=== PATIENT | male | born 1960 | race Caucasian/White ===

== ENCOUNTER 2024-01-18 16:41 | Emergency (ER) | payer OTHER, SELFPAY ==
[2024-01-18 16:42] VITALS: BP 105/79
[2024-01-18 18:12] VITALS: BP 125/78
--- NOTE | 2024-01-18 19:35 | ED.MUSCINJ ---
HPI-Injury
General
Chief Complaint: Musculo-Skeletal Complaint
Source: patient
Exam Limitations: none
Time Seen by Provider: 01/18/24 19:21
History of Present Illness-Injury
Is this injury a work related problem?: No
Is pt an associate of [facility]?: No
Initial Injury comments:
This is a 63 year old male that comes in with c/o right knee pain. States that on Monday he was playing with his children and he was squatting down. States that when he stood up something felt wrong in the right knee on. States that his hamstring
felt weak and numb for a couple seconds. States that when he goes up and down the steps he can't fulling bend the knee. Denies any fever, chills, chest pain, SOB, abd pain, nausea, vomiting, diarrhea, headache, dizziness, urinary burning.
Past History
Past History
ED Past Medical History: HTN, Psychiatric (Anxiety, ) and Other (Sigmoid diverticulosis)
ED Past Surgical History: Other (Colonoscopy with sigmoid polypectomy October 30, 2020)
Social History
Tobacco: Smoker
Alcohol: Daily (beer or Tequila 2 daily)
Personal:
Living: alone
Employment: Employed
Family History
Family History: Other (Noncontributory)
Review of Systems
Review of Systems
All Other Systems: ROS reviewed and negative except as documented in HPI and ROS
Constitutional: Reports no symptoms; Denies fever or chills
EENT: Reports no symptoms
Respiratory: Reports no symptoms; Denies cough or trouble breathing
Cardiac: Reports no symptoms; Denies chest pain
ABD/GI: Reports no symptoms; Denies abdominal pain, nausea, vomiting or diarrhea
: Reports no symptoms; Denies dysuria, frequency or urgency
Musculoskeletal: Reports joint pain (Right knee pain)
Skin: Reports no symptoms
Neurological: Reports no symptoms; Denies dizzy or headache
Psychiatric: Reports no symptoms
Musculoskeletal Injury Exam
Musculoskeletal Injury Exam
Right Medial Knee:
Pain with Movement?: Mild
Tender to palpation?: None
Soft tissue swelling?: None
External deformity and angulation?: None
Joint effusion?: None
Contusion?: None
Hematoma-local bleeding into tissue?: None
Strain- Sprain- Tear (Connective tissue injury)?: None
Crepitus with movement?: No
Joint instability?: No
Malalignment/deformity?: No
Range of motion: Full
Distal skin color and temperature: normal-warm & good color
Capillary Refill: normal
Normal distal neurovascular exam?: Yes
Phy Exam
General Physical Exam
General Presentation: well appearing and no apparent distress
General age: appears stated age
General Skin: warm and dry
General Habitus: normal
General Mental: alert
General Hydration: appears well hydrated
ENT Exam
ENT Exam: TM's normal, pharynx normal and neck supple
Eye Exam
Eye Exam: EOMI
Cardiovascular Exam
Cardiovascular Exam: regular rate/rhythm, no edema, no murmur and normal peripheral pulses
Musculoskeletal Exam
Musculoskeletal Exam: full ROM, no edema and other (negative for tenderness with palpation of the right knee. Patient can extend and flex but c/o slight pain with flexion)
Skin Exam
Skin Exam: normal color, warm/dry, no rash and no petechia
Psychiatric Exam
Psychiatric Exam: normal mood/affect
Injury Course
Orders/Labs/Results
Orders:
Orders
01/18/24 16:45
Knee, Right 4 or More Views [CR Knee- Right 4 Or More View*] Urgent
Comment:
Reason For Exam: pain
MDM/Problems Addressed
Differential Diagnosis Includes:
Knee sprain, Medial Meniscus tear
MDM/Problems Addressed:
This is a 63 year old male that comes in with c/o right medial knee pain. States that he was squatting down on Monday and when he got back up he had pain. Denies any falls.
Will get X-ray of the right knee
Explained to patient that his X-ray is normal. However, patient will need to follow up with the dairy specialist for further evaluation as he may need an MRI. Patient to use Tylenol and Ibuprofen for pain. States that he does have an
appointment with the PCP Next week. Patient to return with any concerns.
Chronic conditions affecting care:
NA
Acute Exacerbation and/or Progression of Chronic Illness:
NA
*Radiology
Radiology exam reviewed: radiology read reviewed (right knee- Normal. )
*Pulse Oximetry
Patient hypoxic: no
*EKG
Interpreted by ED Provider?: NA
Rate: EKG- N/A
*Engine Research Engineer Interpretation
Rate: Engine Research Engineer- N/A
*Critical Care Note
Total Time (30-74mins, 75-104mins- exclusive of procedures): Not Applicable
ED Attending Note
-
Portions of this chart may have been created with voice recognition software.� Occasional wrong word or��sound alike� substitutions may have occurred due to the inherent limitations of voice recognition software.
Discharge Plan
Departure
Patient Disposition: Home (Routine Discharge)
Date of Disposition: 01/18/24
Time of Disposition: 19:46
Patient with high blood pressure during this ER visit?: No
Condition: Good
Covid-19: Not Applicable
Discharge Problem:
Right knee sprain
Instructions: Knee Sprain (DC)
Prescriptions:
No Action
citalopram 20 MG tablet
20 mg PO DAILY
metoprolol succinate 25 MG tablet extended release 24 hr
25 mg PO DAILY
Referrals:
Mell Pritchett DO [Family Provider] -
Ezio Cook MD [Active] - Follow up in 2-3 days
Activity Restrictions/Additional Instructions:
As discussed, your X-ray is negative for any acute process. You may use ice or heat to the knee which ever makes you feel better. You may take Tylenol 1000mg every 6 hours for pain and alternate with Ibuprofen 600mg every 6 hours with food. So if
you take the Tylenol at 9am you can take the Ibuprofen at 12noon and the the Tylenol at 3pm and Ibuprofen at 6pm. Follow up with the certified health education specialist for further evaluation. IF YOU HAVE ANY OTHER CONCERNS PLEASE RETURN TO THE EMERGENCY ROOM.
Interventions
Interventions:
*Risk Screen - Suicide Last Done: 01/18/24 16:42
*General Assessment Last Done: 01/18/24 16:42
*Neglect/Abuse Screening Last Done: 01/18/24 16:42
ED- Fall Risk Assessment Last Done: 01/18/24 16:55
*ED COVID-19 Vaccine History Last Done: 01/18/24 16:42
ED-Musculoskeletal Assessment Last Done: 01/18/24 16:55
Discharge Date and Time
Print Language: MALTESE
[2024-01-18] MEDS: MOTRIN 600 MG PO (19:57)
[2024-01-18] MEDS: TYLENOL 1000 MG PO (19:58)
== END 2024-01-18 20:04 | disposition home or self-care (01) ==
LOC: EMR 16:41
PROVIDERS: EMERGENCY PHYSICIAN Emergency Medicine; FAMILY PHYSICIAN Internal Medicine
DX: S83.91XA Sprain of unspecified site of right knee, initial encounter (principal); X58.XXXA Exposure to other specified factors, initial encounter; Y93.89 Activity, other specified; I10 Essential (primary) hypertension; K57.30 Diverticulosis of large intestine without perforation or abscess without bleeding; F41.9 Anxiety disorder, unspecified; F17.200 Nicotine dependence, unspecified, uncomplicated
CPT/HCPCS: 99283; 73564